=== PATIENT | male | born 1970 | race Caucasian/White ===

== ENCOUNTER 2020-07-16 17:25 | Emergency (ER) | payer SELFPAY ==
[~2020-07-16] VITALS: Ht 182.9 cm; Wt 104.5 kg
[2020-07-16 17:31] VITALS: Ht 182.9 cm; Wt 104.5 kg
[2020-07-16] MEDS ORDERED: CYMBALTA60 MG PO (17:32)
[2020-07-16] MEDS ORDERED: TOPROL XL25 MG PO (17:32)
[2020-07-16] MEDS ORDERED: METHOCARBAMOL500 MG PO (17:33)
[2020-07-16] MEDS ORDERED: GABAPENTIN100 MG PO (17:33)
[2020-07-16 18:14] LABS: BASOPHILS 0.2 % (0-2); EOSINOPHILS 1.1 % (0-7); HEMATOCRIT 42.2 % (42.0-54.0); IMMATURE GRANULOCYTES 0.1 % (0-5); LYMPHOCYTE ABS# 0.84 10x3/uL (1.32-3.57); LYMPHOCYTES 9.1 % (15-50); MCH 28.6 pg (26.0-34.0); MCHC 33.2 g/dL (31.0-37.0); MCV 86.3 fL (80.0-100.0); MEAN PLATELET VOLUME 10.7 fL (7.4-10.4); MONOCYTES 6.6 % (2-11); NEUTROPHIL ABS# 7.63 10x3/uL (1.78-5.38); NEUTROPHILS 82.9 % (40-80); PLATELET COUNT 246 10x3/uL (130-400); RBC 4.89 10x6/uL (4.20-6.10); RDW 13.7 % (11.5-14.5); WBC 9.2 10x3/uL (4.8-10.8)
[2020-07-16 18:26] LABS: APTT 25.6 SECONDS (22.8-39.4); INR 1.02 (0.85-1.17); PROTIME 12.4 SECONDS (11.6-15.0)
[2020-07-16 18:31] LABS: CALC OSMOLALITY 285 mosm/kg (275-300); CALCIUM 8.7 mg/dL (8.5-10.1); CHLORIDE - SERUM 105 mmol/L (98-107); CREATININE - SERUM 1.3 mg/dL (0.6-1.3); GLUCOSE 122 mg/dL (74-106); POTASSIUM - SERUM 3.6 mmol/L (3.5-5.1); SODIUM 142 mmol/L (136-145); UREA NITROGEN 17 mg/dL (7-18); eGFR NON AFRICAN AMERICAN 62 mL/min (90-120)
[2020-07-16 18:43] LABS: INFLUENZA TYPE A NEGATIVE (NEGATIVE); INFLUENZA TYPE B NEGATIVE (NEGATIVE); SARS-CoV-2 ANTIGEN NEGATIVE- SARS-COV-2 (NEGATIVE)
[2020-07-16 18:48] LABS: ALBUMIN 3.8 g/dL (3.4-5.0); ALKALINE PHOSPHATASE 80 U/L (30-120); ALT (SGPT) 37 U/L (10-68); BILIRUBIN - TOTAL 0.61 mg/dL (0.2-1.3); CKMB 3.1 U/L (0.0-3.6); CREATINE KINASE 168 UL (21-232); PRO BNP 86 pg/mL (0-125)
[2020-07-16 18:50] LABS: TROPONIN-I < 0.017 ng/mL (0.000-0.060)
[2020-07-16] MEDS ORDERED: PROAIR HFA8.5 G1 INH (18:52)
[2020-07-16] MEDS ORDERED: MEDROL DOSE PACK4 MG PO (18:52)
[2020-07-16 20:06] VITALS: BP 135/87
== END 2020-07-16 20:11 | disposition home or self-care (01) ==
LOC: D.ER 17:25
PROVIDERS: Family Medicine
DX: R06.02 Shortness of breath (principal); R50.9 Fever, unspecified; I10 Essential (primary) hypertension; Z72.0 Tobacco use

== ENCOUNTER 2020-09-05 22:11 | Observation (INO) | payer OTHER ==
[~2020-09-05] VITALS: Ht 182.9 cm; Wt 104.2 kg
[~2020-09-05 22:11] MED LIST: CYMBALTA60 MG PO; GABAPENTIN100 MG PO; MEDROL DOSE PACK4 MG PO; METHOCARBAMOL500 MG PO; PROAIR HFA8.5 G1 INH; TOPROL XL25 MG PO
[2020-09-05] MEDS ORDERED: KLONOPIN1 MG PO (22:33)
[2020-09-05] MEDS ORDERED: VITAMIN D325 MC1 PO (22:33)
[2020-09-05] MEDS ORDERED: LIPITOR20 MG PO (22:33)
[2020-09-05 22:57] VITALS: BP 117/76
[2020-09-05 23:00] VITALS: BP 120/77
[2020-09-05 23:01] LABS: BASOPHILS 0.5 % (0-2); EOSINOPHILS 2.3 % (0-7); HEMATOCRIT 40.2 % (42.0-54.0); HEMOGLOBIN 13.3 g/dL (13.5-17.5); LYMPHOCYTES 23.5 % (15-50); MCH 28.3 pg (26.0-34.0); MCHC 33.2 g/dL (31.0-37.0); MCV 85.3 fL (80.0-100.0); MEAN PLATELET VOLUME 7.9 fL (7.4-10.4); MONOCYTES 5.5 % (2-11); NEUTROPHILS 68.2 % (40-80); PLATELET COUNT 248 10x3/uL (130-400); RBC 4.71 10x6/uL (4.20-6.10); RDW 14.9 % (11.5-14.5)
[2020-09-05 23:09] LABS: CALC OSMOLALITY 287 mosm/kg (275-300); CALCIUM 8.4 mg/dL (8.5-10.1); CARBON DIOXIDE 32.3 mmol/L (21.0-32.0); CHLORIDE - SERUM 105 mmol/L (98-107); GLUCOSE 147 mg/dL (74-106); POTASSIUM - SERUM 3.6 mmol/L (3.5-5.1); SODIUM 143 mmol/L (136-145); UREA NITROGEN 13 mg/dL (7-18); eGFR NON AFRICAN AMERICAN 84 mL/min (90-120)
[2020-09-05 23:25] LABS: ALBUMIN 1.6 g/dL (3.4-5.0); ALKALINE PHOSPHATASE 72 U/L (30-120); ALT (SGPT) 38 U/L (10-68); BILIRUBIN - TOTAL 0.31 mg/dL (0.2-1.3); CKMB 2.7 U/L (0.0-3.6); CREATINE KINASE 147 UL (21-232); MAGNESIUM - SERUM 2.1 mg/dL (1.8-2.4)
[2020-09-05 23:27] LABS: APTT 26.8 SECONDS (22.8-39.4); INR 1.08 (0.85-1.17); PROTIME 12.9 SECONDS (11.6-15.0)
[2020-09-05 23:29] LABS: TROPONIN-I < 0.017 ng/mL (0.000-0.060)
[2020-09-06] VITALS (9 sets, daily range): BP systolic 96–123; BP diastolic 61–84; Ht 182.9 cm; Wt 104.2 kg
[2020-09-06 05:25] LABS: BASOPHILS 0.8 % (0-2); HEMATOCRIT 37.1 % (42.0-54.0); HEMOGLOBIN 12.7 g/dL (13.5-17.5); LYMPHOCYTES 35.4 % (15-50); MCH 28.6 pg (26.0-34.0); MCHC 34.1 g/dL (31.0-37.0); MEAN PLATELET VOLUME 7.7 fL (7.4-10.4); MONOCYTES 6.7 % (2-11); NEUTROPHILS 54.1 % (40-80); PLATELET COUNT 226 10x3/uL (130-400); RBC 4.42 10x6/uL (4.20-6.10); RDW 14.9 % (11.5-14.5); WBC 5.8 10x3/uL (4.8-10.8)
[2020-09-06 05:36] LABS: ALKALINE PHOSPHATASE 74 U/L (30-120); ALT (SGPT) 29 U/L (10-68); BILIRUBIN - TOTAL 0.24 mg/dL (0.2-1.3); CALC OSMOLALITY 285 mosm/kg (275-300); CARBON DIOXIDE 27.4 mmol/L (21.0-32.0); CHLORIDE - SERUM 109 mmol/L (98-107); CREATININE - SERUM 0.9 mg/dL (0.6-1.3); GLUCOSE 135 mg/dL (74-106); POTASSIUM - SERUM 3.7 mmol/L (3.5-5.1); PROTEIN - SERUM 6.5 g/dL (6.4-8.2); SODIUM 143 mmol/L (136-145); UREA NITROGEN 10 mg/dL (7-18); eGFR NON AFRICAN AMERICAN > 90 mL/min (90-120)
[2020-09-06 05:37] LABS: ALBUMIN 3.4 g/dL (3.4-5.0)
[2020-09-06 06:54] LABS: CKMB 1.9 U/L (0.0-3.6); CREATINE KINASE 113 UL (21-232); TROPONIN-I < 0.017 ng/mL (0.000-0.060)
--- NOTE | 2020-09-06 09:57 | NUR ---
CARDIAC DIET TRAY TO PT.
--- NOTE | 2020-09-06 11:54 | NUR ---
dry chain offbearer at bedside.
[2020-09-06 12:00] LABS: CKMB 1.9 U/L (0.0-3.6); CREATINE KINASE 94 UL (21-232); TROPONIN-I < 0.017 ng/mL (0.000-0.060)
--- NOTE | 2020-09-06 12:51 | NUR ---
report received from MARY Taylor and care transferred to MARY Hutson
--- NOTE | 2020-09-06 14:38 | NUR ---
ATTEMPTED TO CALL REPORT TO MED II BUT WAS UNABLE TO CONNECT WITH NURSE TO TAKE REPORT, WAS ON HOLD. WILL TRY AGAIN.
--- NOTE | 2020-09-06 14:52 | NUR ---
RECEIVED REPORT FROM ED, PATIENT TO UNIT SOON.
--- NOTE | 2020-09-06 15:21 | NUR ---
PATIENT ARRIVED TO UNIT VIA WHEELCHAIR AT THIS TIME. NO DISTRESS.
--- NOTE | 2020-09-06 16:41 | NUR ---
PATIENT REFUSED TO STAY. PATIENT STATED HE TOLD THE ED DOC THAT HE DID NOT WANT TO STAY AND BE ADMITTED THAT HE WANTED TO GO HOME AND SEE HIS FRUIT CANNER. AMA PAPERS PROVIDED, PATIENT THANKED THIS FRONT OFFICE DEVELOPER. ENCOURAGED AND EDUCATED PATIENT REGARDING CARDIAC EVENTS. PHONE NUMBERS TO CARDIOLOGISTS PROVIDED FOR [facility] AND ENCOURAGED THEM TO CALL. PATIENT LEFT IN NO DISTRESS WITH HIS AND ALL PERSONAL BELONGINGS.
--- NOTE | 2020-09-06 18:52 | NUR ---
20 GAUGE IV REMOVED FROM RIGHT AC. CATHETER TIP INTACT. NO BLEEDING FROM SITE. 2X2 GAUZE APPLIED AND SECURED WITH BANDAID. DISCHARGE INSTRUCTIONS PROVIDED. PATIENT VERBALIZED UNDERSTANDING OF ALL INSTRUCTIONS PROVIDED. NICOTINE CESSATION PAPER FAXED.
== END 2020-09-06 19:31 | disposition home or self-care (01) ==
LOC: D.ER 22:11 → OBSVTIME 09-06 04:25 → D.EDHOLD 09-06 04:25 → D.M2 09-06 13:28
PROVIDERS: Family Medicine; ADMIT Emergency Medicine; ATTEND Emergency Medicine
DX: R07.9 Chest pain, unspecified (principal); R20.2 Paresthesia of skin; R55 Syncope and collapse; I10 Essential (primary) hypertension; E78.5 Hyperlipidemia, unspecified; F41.9 Anxiety disorder, unspecified